=== PATIENT | male | born 1975 | race Caucasian/White ===

== ENCOUNTER → 2021-02-02 08:59 | Outpatient (BNVA) | payer SELFPAY | PROVIDERS: Visit Provider Orthopaedic Surgery ==

== ENCOUNTER 2021-02-02 12:02 | Day surgery (SDC) | payer OTHER, SELFPAY ==
--- NOTE | 2021-02-02 12:25 | P.OP_ITS ---
Operative Note Operative Note Date of Service: 02/02/21 Narrative: Operative Note Preop diagnosis: 1. Left middle finger soft tissue mass Postop diagnosis: Same Procedure: 1. Left middle finger excisional biopsy of soft tissue mass Surgeon: Herminia Rosales MD Anesthesia: Digital block using 1% lidocaine with epinephrine Findings: 7-8 mm diameter red friable soft tissue mass consistent with pyogenic granuloma removed and sent for histopathology EBL: Less than 5 mL Tourniquet time: None Specimens: Left middle finger soft tissue mass sent for histopathology Complications: None Disposition: Brought to recovery room in stable condition Plan: Follow-up for 7-10 days for wound check and suture removal and to check pathology Take antibiotics given to him by dermatology, minocycline Indications: The patient is 45 years old, with a left middle finger soft tissue mass near the nail plate. The risks and benefits of operative treatment including but not limited to risk of damage to blood vessels, nerves, tendons, infection, persistent pain, persistent symptoms, recurrence or possible need for additional surgery were discussed with the patient and the patient wishes to proceed with surgery. Procedure: Once consent was obtained a local block was performed in the preop area using a combination of 1% lidocaine with epinephrine. The patient was then brought back to the operating suite and placed on the operative table in supine position. A tourniquet was applied to the proximal aspect of the left upper extremity and the limb was prepped and draped in a standard surgical fashion. Once assured that we had a good block, a 6 mm longitudinal incision was made extending proximal from the soft tissue mass over an area of fullness. . The incision was made through the skin to the subcutaneous tissues using a #15 blade, and was over the dorsal aspect of the left middle finger distal phalanx. Careful dissection was made down to the level of the soft tissue mass using tenotomy and iris scissors. The mass was dissected off of the germinal matrix of the nail bed. Several of the small feeding blood vessels were cauterized using bipolar electrocautery, and the mass was removed and placed on the back table to be sent for histopathology. The wound edges, through which the soft tissue mass protruded, were then sharply debrided using a 15. Blade. the wound was copiously irrigated with normal saline and hemostasis was obtained with a br ief period of local pressure and bipolar electrocautery. The skin edges were reapproximated with some 5.0 nylon suture material and a sterile dressing was applied. The patient appears to have tolerated the procedure well and with no complications. All digits were well vascularized at the conclusion of the case.
[2021-02-02 12:36] VITALS: BP 142/89; PULSE 68; RESP 16; TEMP 36.4; O2SAT 97; BMI 25.2
[2021-02-02 14:42] VITALS: BP 165/90; PULSE 70; RESP 20; TEMP 37; O2SAT 97
== END 2021-02-02 14:55 | disposition home or self-care (01) ==
PROVIDERS: PCP Internal Medicine; Visit Provider Orthopaedic Surgery
PROC: (CPT 26115; principal; 2021-02-02 13:20)
DX: D18.01 Hemangioma of skin and subcutaneous tissue (principal); I10 Essential (primary) hypertension
CPT/HCPCS: 26115; 87071; 87073; 87205; 88305

== ENCOUNTER → 2021-02-27 13:36 | Outpatient (BNVA) | payer OTHER, SELFPAY | PROVIDERS: Visit Provider Orthopaedic Surgery ==

== ENCOUNTER → 2022-08-03 12:20 | Outpatient (BNVA) | payer OTHER, SELFPAY | PROVIDERS: Visit Provider Orthopaedic Surgery | DX: Z13.89 Encounter for screening for other disorder (principal) ==